=== PATIENT | male | born 1970 | race Hispanic/Latino ===

== ENCOUNTER 2017-11-18 12:25 | Observation (INO) | payer MEDICARE ==
[~2017-11-18] VITALS: Ht 172.7 cm; Wt 130.2 kg
[2017-11-18] MEDS ORDERED: SODIUM CHLORIDE 0.9% 1000ML 1,000 ML IV STA ×4 (13:05→17:56)
[2017-11-18] MEDS ORDERED: INSULIN LISPRO 100 UNIT/1 ML 3ML VIAL SQ SCH (13:15)
[2017-11-18 13:32] LABS: BASOPHILS % 0.5 % (0.0-1.0); EOSINOPHILS # (AUTO) 0.3 (0.0-0.4); EOSINOPHILS % 4.2 % (0.0-6.0); HEMATOCRIT 46.2 % (38.2-49.6); HEMOGLOBIN 15.6 g/dL (14.0-18.0); LYMPHOCYTES # (AUTO) 2.5 (1.0-3.2); LYMPHOCYTES % 30.9 % (18.0-39.1); MEAN CORPUSCULAR HEMOGLOBIN 26.8 pg (28-32); MEAN CORPUSCULAR HGB CONC 33.8 g/dL (31-35); MEAN CORPUSCULAR VOLUME 79.2 fL (81-99); MONOCYTES # (AUTO) 0.6 (0.2-0.8); MONOCYTES % 6.9 % (4.4-11.3); NEUTROPHILS # (AUTO) 4.5 (2.1-6.9); PLATELET COUNT 241 x10e3/uL (140-360); RED BLOOD COUNT 5.83 x10e6/uL (4.3-5.7); RED CELL DISTRIBUTION WIDTH 13.3 % (11.7-14.4)
[2017-11-18 13:50] LABS: ALBUMIN 4.2 g/dL (3.5-5.0); ALBUMIN/GLOBULIN RATIO 1.1 (0.8-2.0); ANION GAP 14.9 mmol/L (8-16); CALCIUM 10.4 mg/dL (8.4-10.2); CREATININE, SERUM 1.32 mg/dL (0.72-1.25); POTASSIUM 3.9 mmol/L (3.5-5.1)
[2017-11-18 14:05] LABS: CLARITY,URINE CLEAR (CLEAR); COLOR,URINE YELLOW (YELLOW); LEUKOCYTE ESTERASE ,URINE NEGATIVE (NEGATIVE); NITRITE,URINE NEGATIVE (NEGATIVE); PROTEIN,URINE DIPSTICK NEGATIVE (NEGATIVE)
[2017-11-18 14:06] LABS: BILIRUBIN,URINE NEGATIVE (NEGATIVE); KETONES,URINE NEGATIVE (NEGATIVE); URINE UROBILINOGEN 0.2 mg/dL (0.2 - 1)
[2017-11-18 14:32] LABS: EPITHELIAL CELLS,URINE RARE /LPF; MUCUS,URINE RARE (RARE); RBC,URINE 0-5 /HPF (0-5); WBC,URINE (MAN) 0-5 /HPF (0-5)
[2017-11-18] MEDS ORDERED: SODIUM CHLORIDE 0.9% 1000ML 1,000 ML ONE (17:02)
[2017-11-18 17:23] LABS: INR 1.09; PARTIAL THROMBOPLASTIN TIME 25.8 seconds (23.8-35.5); PROTHROMBIN TIME 13.3 seconds (11.9-14.5)
[2017-11-18 17:27] LABS: CREATINE KINASE 208 IU/L (30-200)
[2017-11-18] MEDS ORDERED: OLANZAPINE5 MG PO (17:59)
[2017-11-18] MEDS ORDERED: SIMVASTATIN20 MG PO (17:59)
[2017-11-18] MEDS ORDERED: HYDROCHLOROTHIA25 MG PO (17:59)
[2017-11-18] MEDS ORDERED: DONEPEZIL HCL5 MG PO (17:59)
[2017-11-18] MEDS ORDERED: CITALOPRAM HBR20 MG PO (17:59)
[2017-11-18] MEDS ORDERED: NAMENDA10 MG PEG (17:59)
[2017-11-18] MEDS ORDERED: JANUMET 50-5001 EACH PO (17:59)
[2017-11-18] MEDS ORDERED: IBUPROFEN400 MG PO (17:59)
[2017-11-18] MEDS ORDERED: FENOFIBRATE145 MG PO (17:59)
[2017-11-18] MEDS ORDERED: LOW DOSE ASPIRI81 MG PO (17:59)
[2017-11-18] MEDS ORDERED: QUETIAPINE FUM100 MG PO (17:59)
[2017-11-18] MEDS ORDERED: OMEPRAZOLE40 MG PEG (17:59)
[2017-11-18] MEDS ORDERED: LEVOCETIRIZINE D5 MG PO (17:59)
[2017-11-18] MEDS ORDERED: MULTIVITAMINS1 EAC6 PEG (17:59)
[2017-11-18] MEDS ORDERED: GABAPENTIN300 MG PEG (17:59)
[2017-11-18] MEDS ORDERED: LISINOPRIL10 MG PEG (17:59)
[2017-11-18] MEDS ORDERED: B-121000 MCG PO (17:59)
[2017-11-18] MEDS ORDERED: LOSARTAN POTAS100 MG PO (17:59)
[2017-11-18] MEDS ORDERED: ASPIRIN 81 MG CHEW TAB PO ONE (18:15)
[2017-11-18] MEDS ORDERED: DEXTROSE 50% SYRINGE 50 ML IV PRN (18:15)
[2017-11-18 20:00] VITALS: BP 111/62
[2017-11-18] MEDS: SODIUM CHLORIDE 0.9% 1000ML 1,000 ML IV SCH (20:03)
--- NOTE | 2017-11-18 20:29 | History and Physical ---
CHIEF COMPLAINT: Dizziness and elevated glucose. HISTORY OF PRESENT ILLNESS: This is a 47-year-old man with history of diabetes mellitus who has been having dizziness and elevated glucose as high as 188 today and, therefore, came to the hospital. Here he was found to be hypotensive. Blood glucose 388. He has acute kidney injury admitted for further evaluation and management. PAST MEDICAL HISTORY: Diabetes mellitus type 2, hypertension, hyperlipidemia, obesity, diabetic neuropathy, disabled. Anxiety/depression. PAST SURGICAL HISTORY: Bilateral ankle surgery in 2000, left knee surgery per medical records. FAMILY, SOCIAL HISTORY: The patient is . He has no children. He is retired from [employer]. No alcohol, illicits or cigarettes. MEDICATIONS: Per electronic medical records. REVIEW OF SYSTEMS: Denies chest pain, shortness of breath, fever or chills or sweats, no nausea, vomiting or diarrhea, headache or leg pain. PHYSICAL EXAMINATION VITAL SIGNS: Have been reviewed. Blood pressure as low as 89/56. Temperature 96.6. GENERAL APPEARANCE: A tired-appearing man resting in the bed. HEENT: Anicteric. Pupils responsive to light. No oral lesions. CARDIOVASCULAR: Normal S1 and S2. LUNGS: Moderate breath sounds, ABDOMEN: Soft and nontender. Nondistended. EXTREMITIES: There is no edema or calf tenderness. NEUROLOGIC: Alert and oriented x3. Moving all extremities. SKIN: Dry. PSYCHIATRIC: Flat affect. LABS: Reviewed. MEDICATIONS: Reviewed. ASSESSMENT: A 47-year-old man. 1. Uncontrolled diabetes mellitus type 2. 2. Dehydration. 3. Acute kidney injury. 4. Hypotension. 5. Early sepsis/cellulitis. 6. Hypercalcemia, likely secondary to dehydration. 7. Diabetic neuropathy. 8. Dementia. 9. Anxiety/depression. PLAN: 1. Rehydrate the patient, received 2 liters of fluid and give an additional 3 liters. 2. Restart diabetic medication. 3. Obtain hemoglobin A1c and lipid panel. 4. Restart citalopram. 5. Restart Aricept. 6. Hold BILLY inhibitor. Hold losartan. Hold lisinopril. Hold ibuprofen in the setting of acute kidney injury. 7. Restart statin in the setting of hyperlipidemia. 8. Use heparin and Pepcid. DISPOSITION: Follow up labs. Job#: [id number] GH
[2017-11-18] MEDS ORDERED: DONEPEZIL HCL 5 MG TAB PO SCH (21:00)
[2017-11-18] MEDS ORDERED: SIMVASTATIN 20 MG TAB PO SCH (21:00)
[2017-11-18] MEDS: HEPARIN SOD (PORCINE) 5,000 UNIT/ML VIAL SC SCH (21:27)
[2017-11-18 21:42] LABS: CREATINE KINASE MB 2.3 ng/mL (0-5.0)
[2017-11-19] VITALS: BP 105/58
[2017-11-19] MEDS: SODIUM CHLORIDE 0.9% 1000ML 1,000 ML IV SCH (03:15)
[2017-11-19 04:00] VITALS: BP 100/53
[2017-11-19 06:04] LABS: BASOPHILS # (AUTO) 0.1 (0.0-0.1); BASOPHILS % 0.7 % (0.0-1.0); EOSINOPHILS # (AUTO) 0.4 (0.0-0.4); EOSINOPHILS % 5.6 % (0.0-6.0); HEMATOCRIT 38.6 % (38.2-49.6); HEMOGLOBIN 12.8 g/dL (14.0-18.0); LYMPHOCYTES # (AUTO) 2.8 (1.0-3.2); LYMPHOCYTES % 37.9 % (18.0-39.1); MEAN CORPUSCULAR HEMOGLOBIN 27.2 pg (28-32); MEAN CORPUSCULAR HGB CONC 33.2 g/dL (31-35); MONOCYTES # (AUTO) 0.7 (0.2-0.8); MONOCYTES % 8.9 % (4.4-11.3); NEUTROPHILS # (AUTO) 3.4 (2.1-6.9); NEUTROPHILS % 46.1 % (38.7-80.0); PLATELET COUNT 202 x10e3/uL (140-360); RED BLOOD COUNT 4.71 x10e6/uL (4.3-5.7); RED CELL DISTRIBUTION WIDTH 13.4 % (11.7-14.4)
[2017-11-19 06:26] LABS: ALANINE AMINOTRANSFERASE 62 IU/L (0-55); ALBUMIN/GLOBULIN RATIO 1.2 (0.8-2.0); ALKALINE PHOSPHATASE 60 IU/L (40-150); ANION GAP 9.4 mmol/L (8-16); BLOOD UREA NITROGEN 16 mg/dL (7-26); BUN/CREATININE RATIO 15 (6-25); CALCIUM 8.7 mg/dL (8.4-10.2); CARBON DIOXIDE 28 mmol/L (22-29); CHLORIDE 104 mmol/L (98-107); CREATINE KINASE 139 IU/L (30-200); CREATININE, SERUM 1.05 mg/dL (0.72-1.25); EST GLOMERULAR FILTRATION RATE > 60 ML/MIN (60-); GLUCOSE 222 mg/dL (74-118); POTASSIUM 4.4 mmol/L (3.5-5.1); SODIUM 137 mmol/L (136-145)
[2017-11-19] MEDS ORDERED: SODIUM CHLORIDE 0.9% 1000ML 1,000 ML IV SCH ×2 (07:00)
[2017-11-19] MEDS ORDERED: PANTOPRAZOLE SOD 40 MG TABEC PO SCH (07:30)
[2017-11-19 08:05] VITALS: BP 100/53
[2017-11-19 08:06] VITALS: BP 119/71
[2017-11-19] MEDS: INSULIN REGULAR, HUMAN 100 UNIT/1 ML 3ML VIAL SQ SCH ×3 (08:09→11:39)
[2017-11-19] MEDS: HEPARIN SOD (PORCINE) 5,000 UNIT/ML VIAL SC SCH (08:16)
[2017-11-19] MEDS ORDERED: CITALOPRAM HYDROBROMIDE 20 MG TAB PO SCH (09:00)
[2017-11-19] MEDS ORDERED: MEMANTINE 10 MG TAB PEG SCH (09:00)
[2017-11-19] MEDS ORDERED: FENOFIBRATE 145 MG TAB PO SCH (09:00)
[2017-11-19] MEDS ORDERED: QUETIAPINE FUMARATE 100 MG TAB PO SCH (09:00)
[2017-11-19 12:03] VITALS: BP 105/71
--- NOTE | 2017-11-24 21:51 | Discharge Summary ---
PRINCIPAL DIAGNOSES 1. Uncontrolled diabetes mellitus, type 2. 2. Dehydration. 3. Acute kidney injury. 4. Hypertension. 5. Early sepsis/cellulitis. 6. Hypercalcemia secondary to dehydration. 7. Diabetic neuropathy. 8. Dementia. 9. Anxiety/depression. SECONDARY DIAGNOSIS: Diabetes mellitus, type 2. CHIEF COMPLAINT: Dizziness and elevated blood glucose. HISTORY OF PRESENT ILLNESS: A 47-year-old with dizziness and elevated blood glucose. Please refer to H and P for further details. HOSPITAL COURSE: Patient had uncontrolled diabetes. He did insulin and rehydrated. Had dehydration, acute kidney injury quickly improved. Had hypertension, also resolved as well. Patient also treated for diabetic neuropathy and anxiety. He did well, subsequently received lots of fluid more than 5 L, subsequently transitioned on . Hemoglobin A1c was 12.2. Patient will closely follow up with primary care doctor. DISCHARGE MEDICATION: Per electronic medical record. FOLLOWUP: With primary care doctor in 1 week. CONDITION ON DISCHARGE: Stable and improving. DISCHARGE LOCATION: Home. CARINE BENEDICT MD Job#: [id number] CQ
== END 2017-11-19 13:49 | disposition home or self-care (01) ==
LOC: ER 12:25 → ERHOLD 18:34 → IMCU 20:51
PROVIDERS: ADMIT Internal Medicine; ATTEND Internal Medicine
DX: E11.65 Type 2 diabetes mellitus with hyperglycemia (principal); N17.9 Acute kidney failure, unspecified; E86.0 Dehydration; E83.52 Hypercalcemia; I95.9 Hypotension, unspecified; E11.40 Type 2 diabetes mellitus with diabetic neuropathy, unspecified; Z79.84 Long term (current) use of oral hypoglycemic drugs; I10 Essential (primary) hypertension; F41.8 Other specified anxiety disorders; F03.90 Unspecified dementia, unspecified severity, without behavioral disturbance, psychotic disturbance, mood disturbance, and anxiety; E78.5 Hyperlipidemia, unspecified; E66.9 Obesity, unspecified; Z68.41 Body mass index [BMI] 40.0-44.9, adult; Z91.19 Patient's noncompliance with other medical treatment and regimen; Z79.82 Long term (current) use of aspirin; Z88.5 Allergy status to narcotic agent; Z88.0 Allergy status to penicillin
CPT/HCPCS: 36415 ×2; 80053 ×2; 81001; 82550 ×2; 82553 ×2; 82948 ×2; 83036; 84484 ×2; 85025 ×2; 85610; 85730; 87086; 93005; 99284; G0378 ×2; J1644 ×2; J7030 ×2; S0164

== ENCOUNTER 2018-07-14 19:57 | Emergency (ER) | payer MEDICARE ==
[~2018-07-14] VITALS: Ht 172.7 cm; Wt 130.2 kg
[~2018-07-14 19:57] MED LIST: B-121000 MCG PO; CITALOPRAM HBR20 MG PO; DONEPEZIL HCL5 MG PO; FENOFIBRATE145 MG PO; GABAPENTIN300 MG PEG; HYDROCHLOROTHIA25 MG PO; IBUPROFEN400 MG PO; JANUMET 50-5001 EACH PO; LEVOCETIRIZINE D5 MG PO; LISINOPRIL10 MG PEG; LOSARTAN POTAS100 MG PO; LOW DOSE ASPIRI81 MG PO; MULTIVITAMINS1 EAC6 PEG; NAMENDA10 MG PEG; OLANZAPINE5 MG PO; OMEPRAZOLE40 MG PEG; QUETIAPINE FUM100 MG PO; SIMVASTATIN20 MG PO
[2018-07-14] MEDS ORDERED: SODIUM CHLORIDE 0.9% 1000ML 1,000 ML IV STA (20:24)
[2018-07-14] MEDS ORDERED: PANTOPRAZOLE 40 MG 10ML VIAL IV NR (20:24)
[2018-07-14] MEDS ORDERED: ONDANSETRON HCL INJ 2MG/ML 2ML 2 MG/ML VIAL IV NR (20:30)
[2018-07-14 20:36] LABS: BASOPHILS % 0.4 % (0.0-1.0); EOSINOPHILS # (AUTO) 0.1 (0.0-0.4); EOSINOPHILS % 1.2 % (0.0-6.0); HEMATOCRIT 46.9 % (38.2-49.6); HEMOGLOBIN 15.7 g/dL (14.0-18.0); LYMPHOCYTES # (AUTO) 3.3 (1.0-3.2); LYMPHOCYTES % 31.3 % (18.0-39.1); MEAN CORPUSCULAR HEMOGLOBIN 25.9 pg (28-32); MEAN CORPUSCULAR HGB CONC 33.5 g/dL (31-35); MEAN CORPUSCULAR VOLUME 77.3 fL (81-99); MONOCYTES # (AUTO) 1.1 (0.2-0.8); MONOCYTES % 10.1 % (4.4-11.3); NEUTROPHILS # (AUTO) 5.9 (2.1-6.9); NEUTROPHILS % 56.8 % (38.7-80.0); PLATELET COUNT 273 x10e3/uL (140-360); RED BLOOD COUNT 6.07 x10e6/uL (4.3-5.7); RED CELL DISTRIBUTION WIDTH 13.5 % (11.7-14.4)
[2018-07-14 20:55] LABS: ALANINE AMINOTRANSFERASE 74 IU/L (0-55); ALBUMIN 4.1 g/dL (3.5-5.0); ALBUMIN/GLOBULIN RATIO 1.3 (0.8-2.0); ALKALINE PHOSPHATASE 94 IU/L (40-150); ANION GAP 18.5 mmol/L (8-16); BLOOD UREA NITROGEN 9 mg/dL (7-26); BUN/CREATININE RATIO 8 (6-25); CARBON DIOXIDE 20 mmol/L (22-29); CHLORIDE 94 mmol/L (98-107); CREATININE, SERUM 1.07 mg/dL (0.72-1.25); EST GLOMERULAR FILTRATION RATE > 60 ML/MIN (60-); GLUCOSE 247 mg/dL (74-118); LIPASE 13 U/L (8-78); POTASSIUM 3.5 mmol/L (3.5-5.1); SODIUM 129 mmol/L (136-145)
[2018-07-14 22:28] LABS: BILIRUBIN,URINE NEGATIVE (NEGATIVE); CLARITY,URINE CLEAR (CLEAR); COLOR,URINE STRAW (YELLOW); KETONES,URINE NEGATIVE (NEGATIVE); LEUKOCYTE ESTERASE ,URINE NEGATIVE (NEGATIVE); NITRITE,URINE NEGATIVE (NEGATIVE); PROTEIN,URINE DIPSTICK NEGATIVE (NEGATIVE); RBC,URINE 0-5 /HPF (0-5); URINE UROBILINOGEN 0.2 mg/dL (0.2 - 1); WBC,URINE (MAN) 0-5 /HPF (0-5)
[2018-07-14 23:29] VITALS: BP 120/79
== END 2018-07-14 23:30 | disposition home or self-care (01) ==
LOC: ER 19:57
DX: R10.13 Epigastric pain (principal); R11.2 Nausea with vomiting, unspecified; F03.90 Unspecified dementia, unspecified severity, without behavioral disturbance, psychotic disturbance, mood disturbance, and anxiety; I10 Essential (primary) hypertension; E11.9 Type 2 diabetes mellitus without complications; F32.9 Major depressive disorder, single episode, unspecified
CPT/HCPCS: 36415; 80053; 81001; 83690; 84484; 85025; 87086; 87400; 99283; C9113; J2405; J7030

== ENCOUNTER 2018-07-16 12:06 | Emergency (ER) | payer MEDICARE ==
[~2018-07-16] VITALS: Ht 172.7 cm; Wt 130.2 kg
[2018-07-16 13:08] LABS: BASOPHILS % 0.5 % (0.0-1.0); EOSINOPHILS # (AUTO) 0.1 (0.0-0.4); EOSINOPHILS % 1.2 % (0.0-6.0); HEMATOCRIT 44.7 % (38.2-49.6); HEMOGLOBIN 15.1 g/dL (14.0-18.0); LYMPHOCYTES # (AUTO) 2.2 (1.0-3.2); LYMPHOCYTES % 25.2 % (18.0-39.1); MEAN CORPUSCULAR HGB CONC 33.8 g/dL (31-35); MEAN CORPUSCULAR VOLUME 77.1 fL (81-99); MONOCYTES # (AUTO) 0.7 (0.2-0.8); MONOCYTES % 7.7 % (4.4-11.3); NEUTROPHILS # (AUTO) 5.8 (2.1-6.9); NEUTROPHILS % 65.1 % (38.7-80.0); PLATELET COUNT 251 x10e3/uL (140-360); RED CELL DISTRIBUTION WIDTH 13.5 % (11.7-14.4)
[2018-07-16 13:16] LABS: CLARITY,URINE CLEAR (CLEAR); COLOR,URINE YELLOW (YELLOW); KETONES,URINE NEGATIVE (NEGATIVE); LEUKOCYTE ESTERASE ,URINE NEGATIVE (NEGATIVE); NITRITE,URINE NEGATIVE (NEGATIVE); PROTEIN,URINE DIPSTICK NEGATIVE (NEGATIVE)
[2018-07-16 13:17] LABS: BILIRUBIN,URINE NEGATIVE (NEGATIVE); URINE UROBILINOGEN 0.2 mg/dL (0.2 - 1)
[2018-07-16 13:32] LABS: ALANINE AMINOTRANSFERASE 79 IU/L (0-55); ALBUMIN 3.9 g/dL (3.5-5.0); ALBUMIN/GLOBULIN RATIO 1.3 (0.8-2.0); ALKALINE PHOSPHATASE 84 IU/L (40-150); AMYLASE 28 U/L (25-125); ANION GAP 17.8 mmol/L (8-16); BLOOD UREA NITROGEN 7 mg/dL (7-26); BUN/CREATININE RATIO 8 (6-25); CALCIUM 9.3 mg/dL (8.4-10.2); CARBON DIOXIDE 21 mmol/L (22-29); CHLORIDE 102 mmol/L (98-107); CREATININE, SERUM 0.87 mg/dL (0.72-1.25); EST GLOMERULAR FILTRATION RATE > 60 ML/MIN (60-); GLUCOSE 245 mg/dL (74-118); LIPASE 17 U/L (8-78); POTASSIUM 3.8 mmol/L (3.5-5.1); SODIUM 137 mmol/L (136-145)
[2018-07-16 13:34] LABS: EPITHELIAL CELLS,URINE FEW /LPF
[2018-07-16 13:35] LABS: WBC,URINE (MAN) 0-5 /HPF (0-5)
--- NOTE | 2018-07-16 15:13 | Diagnostic Imaging Report ---
EXAM: CT Abdomen and Pelvis WITH contrast INDICATION: ^ABD PAIN/STATES HERNIA ^[id number] ^1350 COMPARISON: None. TECHNIQUE: Abdomen and pelvis were scanned utilizing a multidetector helical scanner from the lung base to the pubic symphysis after administration of IV contrast. Coronal and sagittal reformations were obtained. Routine protocol was performed. Scan was performed when during portal venous phase. IV CONTRAST: 100 mL of Isovue-370 ORAL CONTRAST: Water RADIATION DOSE: Total DLP: 922.4 mGy*cm Estimated effective dose: (DLP x 0.015 x size factor) mSv COMPLICATIONS: None FINDINGS: LINES and TUBES: None. LOWER THORAX: Unremarkable HEPATOBILIARY: No focal hepatic lesions. No biliary ductal dilation. GALLBLADDER: No radio-opaque stones or sludge. No wall thickening. SPLEEN: No splenomegaly. PANCREAS: No focal masses or ductal dilatation. ADRENALS: No adrenal nodules KIDNEYS/URETERS: Kidneys enhance symmetrically. No hydronephrosis. No cystic or solid mass lesions. No stones. GI TRACT: No abnormal distention, wall thickening, or evidence of bowel obstruction. Appendix is normal. PELVIC ORGANS/BLADDER: Unremarkable. LYMPH NODES: No lymphadenopathy. VESSELS: Unremarkable. PERITONEUM / RETROPERITONEUM: No free air or fluid. BONES: Unremarkable. SOFT TISSUES: Unremarkable. IMPRESSION: No acute abnormality within the abdomen and pelvis. Specifically no abdominal hernias. Signed by: Dr. Agatha Hicks M.D. on 07/16/2018 3:10 PM
[2018-07-16 16:14] VITALS: BP 160/97
[2018-07-16] MEDS ORDERED: IOPAMIDOL 370 MG/ML 200 ML INFUS..BTL INJ ONE (18:55)
[2018-07-16] MEDS ORDERED: SODIUM CHLORIDE 0.9% 50ML 50 ML ONE (18:55)
== END 2018-07-16 16:10 | disposition home or self-care (01) ==
LOC: ER 12:06
DX: R10.33 Periumbilical pain (principal); R11.0 Nausea; F03.90 Unspecified dementia, unspecified severity, without behavioral disturbance, psychotic disturbance, mood disturbance, and anxiety; I10 Essential (primary) hypertension; E11.9 Type 2 diabetes mellitus without complications; E78.5 Hyperlipidemia, unspecified
CPT/HCPCS: 36415; 74177; 80053; 81001; 82150; 83690; 85025; 99284; Q9967

== ENCOUNTER 2019-07-01 16:44 | Emergency (ER) | payer MEDICARE ==
[~2019-07-01] VITALS: Ht 172.7 cm; Wt 130.2 kg
--- OUTSIDE RECORDS SUMMARY | 2019-07-01 16:46 | XMS REPORT ---
Author Author [facility] Address Unknown Phone Unavailable Care Team Providers Care Bead Machine Operator Name Role Phone Yovany NICHOLS Unavailable Unavailable Problems This patient has no known problems. Allergies, Adverse Reactions, Alerts This patient has no known allergies or adverse reactions. Medications This patient has no known medications. Encounters Start Date/Time End Date/Time Encounter Type Admission Type Attending Clinicians Care Facility Care Department Encounter ID 2018-10-25 13:00:59 Outpatient [id number] Results Test Description Test Time Test Comments Text Results Atomic Results Result Comments CT ABDOMEN/PELVIS W 2018-07-16 15:06:00 [place] [id number] Patient Name: ANA LAURA ORTA MR #: [id number] : 1970 Age/Sex: 47/M Req #: [id number] Adm Physician: Ordered by: JANELL NICHOLS MD Report #: [id number] Location: ER Room/Bed: Procedure: [id number] CT/CT ABDOMEN/PELVIS W Exam Date: 07/16/18 Exam Time: 1350 REPORT STATUS: Signed EXAM: CT Abdomen and Pelvis WITH contrast INDICATIO N: ABD PAIN/STATES HERNIA [id number] COMPARISON: None. TECHNIQUE: Abdomen and pelvis were scanned utilizing a multidetector helical scanner from the lung base to the pubic symphysis after administration of IV contrast. Coronal and sagittal reformations were obtained. Routine protocol was performed. Scan was performed when during portal venous phase. IV CONTRAST: 100 mL of Isovue-370 ORAL CONTRAST: Water RADIATION DOSE: Total DLP: 922.4 mGy*cm Estimated effective dose: (DLP x 0.015 x size factor) mSv COMPLICATIONS: None FINDINGS: LINES and TUBES: None. LOWER THORAX: Unremarkable HEPATOBILIARY: No focal hepatic lesions. No biliary ductal dilation. GALLBLADDER: No radio-opaque stones or sludge. No wall thickening. SPLEEN: No splenomegaly. PANCREAS: No focal masses or ductal dilatation. ADRENALS: No adrenal nodules KIDNEYS/URETERS: Kidneys enhance symmetrically. No hydronephrosis. No cystic or solid mass lesions. No stones. GI TRACT: No abnormal distention, wall thickening, or evidence of bowel obstruction. Appendix is normal. PELVIC ORGANS/BLADDER: Unremarkable. LYMPH NODES: No lymphadenopathy. VESSELS: Unremarkable. PERITONEUM / RETROPERITONEUM: No free air or fluid. BONES: Unremarkable. SOFT TISSUES: Unremarkable. IMPRESSION: No acute abnormality within the abdomen and pelvis. Specifically no abdominal hernias. Signed by: Dr. Linda Tony M.D. on 07/16/2018 3:10 PM Dictated By: LINDA TONY MD [id number] Transcribed By: NAE on 07/16/18 1510 COPY TO: JANELL NICHOLS MD
--- NOTE | 2019-07-01 17:31 | Diagnostic Imaging Report ---
CT CERVICAL SPINE WO HISTORY: Neck pain, fall COMPARISON: None. TECHNIQUE: CT of the cervical spine without contrast. Sagittal and coronal reformations were created. One or more of the following dose reduction techniques were used: Automated exposure control, adjustment of the mA and/or kV according to patient size, and/or utilization of iterative reconstruction technique. FINDINGS: Streak artifacts obscure some details. Cervical lordosis is straightened. There is no scoliosis or subluxation. Mild deformity of the bilateral anterior C6 transverse foramina may be due to age indeterminate nondisplaced fractures. Otherwise, no definite acute fracture or compression deformity is seen The craniocervical junction is intact. No gross spinal canal masses are seen. The paravertebral and paraspinal soft tissues are unremarkable. Mild multilevel spondylotic changes are most prominent at C5-C6. Mild to moderate bilateral C5-C6 foraminal stenoses are due to uncovertebral and facet arthrosis. No gross osseous canal stenosis is seen. Cerebellar atrophy is partially imaged. Mildly prominent bilateral upper jugular chain lymph nodes are present. Chronic-appearing deformity of the anterior thyroid cartilage may be related to remote fracture. IMPRESSION: 1. Mild deformity of the bilateral anterior C6 transverse foramina may be due to age indeterminate nondisplaced fractures. CTA of the neck should be considered if clinically indicated. 2. Otherwise, no acute osseous abnormalities. 3. Mild multilevel spondylosis, most prominent at C5-C6. 4. Mild to moderate bilateral C5-C6 degenerative foraminal stenoses. 5. No gross osseous canal stenosis. 6. Chronic-appearing deformity of the anterior thyroid cartilage may be related to remote fracture. 7. Partially imaged cerebellar atrophy. Signed by: Dr. Akira Stahl M.D. on 07/01/2019 5:29 PM
[2019-07-01] MEDS: MORPHINE SULFATE INJ 4 MG/ML INJ 1ML IV ONE (18:25)
[2019-07-01 18:43] LABS: BASOPHILS # (AUTO) 0.1 (0.0-0.1); BASOPHILS % 0.5 % (0.0-1.0); EOSINOPHILS # (AUTO) 0.7 (0.0-0.4); HEMOGLOBIN 14.7 g/dL (14.0-18.0); LYMPHOCYTES # (AUTO) 3.3 (1.0-3.2); LYMPHOCYTES % 28.6 % (18.0-39.1); MEAN CORPUSCULAR HEMOGLOBIN 26.2 pg (28-32); MEAN CORPUSCULAR HGB CONC 33.4 g/dL (31-35); MEAN CORPUSCULAR VOLUME 78.4 fL (81-99); MONOCYTES # (AUTO) 1.2 (0.2-0.8); MONOCYTES % 10.2 % (4.4-11.3); NEUTROPHILS # (AUTO) 6.2 (2.1-6.9); PLATELET COUNT 286 x10e3/uL (140-360); RED BLOOD COUNT 5.61 x10e6/uL (4.3-5.7); RED CELL DISTRIBUTION WIDTH 13.6 % (11.7-14.4)
[2019-07-01 19:09] LABS: ANION GAP 18.1 mmol/L (8-16); BLOOD UREA NITROGEN 9 mg/dL (7-26); BUN/CREATININE RATIO 10 (6-25); CALCIUM 9.7 mg/dL (8.4-10.2); CARBON DIOXIDE 18 mmol/L (22-29); CHLORIDE 101 mmol/L (98-107); CREATININE, SERUM 0.88 mg/dL (0.72-1.25); EST GLOMERULAR FILTRATION RATE > 60 ML/MIN (60-); GLUCOSE 354 mg/dL (74-118); POTASSIUM 4.1 mmol/L (3.5-5.1); SODIUM 133 mmol/L (136-145)
--- NOTE | 2019-07-01 20:46 | Diagnostic Imaging Report ---
Examination: Cervical CT Angiogram with Contrast Clinical indication:Cervical spine fracture. Evaluate for vertebral artery injury. Comparison studies:None Technique: Axial images were obtained from the thoracic inlet. Coronal and sagittal images reconstructed from the axial data. Intravenous contrast: 100 cc of Isovue 370. Computer generated maximum intensity projection and 3D images were performed of the bilateral carotid bifurcations and the aortic arch with bilateral common carotid and cervical internal carotid arteries on a separate workstation. Degree of stenosis at the carotid bulbs, if present, will be calculated using NASCET criteria where the smallest diameter at the location of stenosis is compared to the diameter of the more distal non-diseased vessel lumen. Dose modulation, iterative reconstruction, and/or weight based adjustment of the mA/kV was utilized to reduce the radiation dose to as low as reasonably achievable. Findings: Aortic arch and major vessels: Patent. Common carotid arteries: Patent Cervical carotid bifurcations: Right: Patent. Left :Patent. Internal carotid arteries: Right: Patent. Left: Patent. Vertebral arteries: Patent. IMPRESSION: No bilateral vertebral artery injury, specifically, no stenosis or occlusion. Signed by: Dr. Danii Goel M.D. on 07/01/2019 8:44 PM
== END 2019-07-01 21:26 | disposition home or self-care (01) ==
LOC: ER 16:44
DX: S16.1XXA Strain of muscle, fascia and tendon at neck level, initial encounter (principal); W18.30XA Fall on same level, unspecified, initial encounter; Y92.008 Other place in unspecified non-institutional (private) residence as the place of occurrence of the external cause
CPT/HCPCS: 36415; 70498; 72125; 80048; 85025; 99284; J2270

== ENCOUNTER → 2020-09-10 | Day surgery (SDC) | payer MEDICARE ==
[2020-09-05 14:36] LABS: BASOPHILS # (AUTO) 0.1 (0.0-0.1); BASOPHILS % 0.5 % (0.0-1.0); EOSINOPHILS # (AUTO) 0.3 (0.0-0.4); HEMATOCRIT 43.7 % (38.2-49.6); HEMOGLOBIN 13.8 g/dL (14.0-18.0); LYMPHOCYTES # (AUTO) 2.8 (1.0-3.2); LYMPHOCYTES % 26.8 % (18.0-39.1); MEAN CORPUSCULAR HGB CONC 31.6 g/dL (31-35); MEAN CORPUSCULAR VOLUME 79.2 fL (81-99); MONOCYTES # (AUTO) 0.8 (0.2-0.8); MONOCYTES % 7.5 % (4.4-11.3); NEUTROPHILS # (AUTO) 6.4 (2.1-6.9); NEUTROPHILS % 61.1 % (38.7-80.0); PLATELET COUNT 312 x10e3/uL (140-360); RED BLOOD COUNT 5.52 x10e6/uL (4.3-5.7); RED CELL DISTRIBUTION WIDTH 13.7 % (11.7-14.4)
[2020-09-05 14:51] LABS: ANION GAP 12.2 mmol/L (8-16); BLOOD UREA NITROGEN 13 mg/dL (7-26); BUN/CREATININE RATIO 16 (6-25); CALCIUM 8.8 mg/dL (8.4-10.2); CARBON DIOXIDE 25 mmol/L (22-29); CHLORIDE 104 mmol/L (98-107); EST GLOMERULAR FILTRATION RATE > 60 ML/MIN (60-); GLUCOSE 150 mg/dL (74-118); POTASSIUM 4.2 mmol/L (3.5-5.1); SODIUM 137 mmol/L (136-145)
[~2020-09-10] MED LIST changes: +AMLODIPINE BESYL5 MG PO; +ATORVASTATIN CA10 MG PO; +CLINDAMYCIN PHOS 900MG/ 50ML 50 ML IV ONE; +DEXAMETHASONE SOD PHOS INJ 4 MG/ML VIAL ONE; +DIPHENHYDRAMINE25 MG PO; +FAMOTIDINE20 MG PO; +FENTANYL CITRATE/PF 100MCG/2 ML INJ ONE; +FLOMAX0.4 MG PO; +FLONASE ALLERG9.9 ML INH; +HUMALOG MI100 UNIT/2 SQ; +KETOROLAC TROMETHAMINE 30 MG/ML VIAL ONE; +LANTUS 3ML100 UNITS/; +LIDOCAINE HCL 2% LOCAL INJ 5 ML SDV VIAL INJ ONE; +MIDAZOLAM HCL 2 MG/2 ML VIAL ONE; +ONDANSETRON HCL INJ 2MG/ML 2ML 2 MG/ML VIAL ONE; +OXYBUTYNIN CHLOR5 MG PO; +PROPOFOL IV EMULSION 10 MG/ML 20 ML VIAL ONE; +SEVOFLURANE INHAL SOLN 250 ML PEN BTL ONE; +ULTRAM50 MG PO; +VITAMIN C500 MG PO
[2020-09-10 10:00] VITALS: BP 164/91
== END | disposition home or self-care (01) ==
LOC: OR 05:39
PROVIDERS: ATTEND Specialist
DX: S52.572A Other intraarticular fracture of lower end of left radius, initial encounter for closed fracture (principal); J45.909 Unspecified asthma, uncomplicated; E11.9 Type 2 diabetes mellitus without complications; W18.39XA Other fall on same level, initial encounter; Z88.6 Allergy status to analgesic agent; Z88.0 Allergy status to penicillin; Z01.810 Encounter for preprocedural cardiovascular examination; Z01.812 Encounter for preprocedural laboratory examination; Z20.822 Contact with and (suspected) exposure to COVID-19; Z79.4 Long term (current) use of insulin; Z79.82 Long term (current) use of aspirin; Z68.42 Body mass index [BMI] 45.0-49.9, adult
CPT/HCPCS: 25608; 36415 ×2; 80048; 82948; 85025; 93005; C1713 ×5; J1100; J1885; J2001; J2250; J2405; J2704; J3010; U0002; 76000

== ENCOUNTER 2023-12-03 10:23 | Outpatient (RCR) | payer MEDICARE ==
[~2023-12-03 10:23] MED LIST changes: -CLINDAMYCIN PHOS 900MG/ 50ML 50 ML IV ONE; -DEXAMETHASONE SOD PHOS INJ 4 MG/ML VIAL ONE; -FENTANYL CITRATE/PF 100MCG/2 ML INJ ONE; -KETOROLAC TROMETHAMINE 30 MG/ML VIAL ONE; -LIDOCAINE HCL 2% LOCAL INJ 5 ML SDV VIAL INJ ONE; -MIDAZOLAM HCL 2 MG/2 ML VIAL ONE; -ONDANSETRON HCL INJ 2MG/ML 2ML 2 MG/ML VIAL ONE; -PROPOFOL IV EMULSION 10 MG/ML 20 ML VIAL ONE; -SEVOFLURANE INHAL SOLN 250 ML PEN BTL ONE
== END 2023-12-29 ==
LOC: PT 10:23
PROVIDERS: ATTEND Specialist
DX: M17.0 Bilateral primary osteoarthritis of knee (principal)

== ENCOUNTER 2024-01-04 08:48 | Emergency (ER) | payer MEDICARE ==
[~2024-01-04] VITALS: Ht 172.7 cm; Wt 122.5 kg
[2024-01-04 08:50] VITALS: TEMP 99
[2024-01-04 09:32] VITALS: PULSE 96; RESP 16; O2SAT 98
== END 2024-01-04 09:40 | disposition home or self-care (01) ==
LOC: ER 09:02
DX: R50.9 Fever, unspecified (principal); E11.40 Type 2 diabetes mellitus with diabetic neuropathy, unspecified; I10 Essential (primary) hypertension; F03.90 Unspecified dementia, unspecified severity, without behavioral disturbance, psychotic disturbance, mood disturbance, and anxiety; E78.5 Hyperlipidemia, unspecified; K21.9 Gastro-esophageal reflux disease without esophagitis; F32.A Depression, unspecified
CPT/HCPCS: 99282